=== PATIENT | male | born 1950 ===

== ENCOUNTER 2024-05-18 08:27 | Outpatient (CLI) | payer OTHER, BC ==
[~2024-05-18 08:27] MED LIST: HYDROCHLOROTH12.5 MG; LIPITOR20 MG; TAMS0.4C PO
== END 2024-05-18 08:29 | disposition home or self-care (01) ==
LOC: SONOGRAMA 08:27
PROVIDERS: ATTEND Pathology Anatomic Pathology
DX: D37.030 Neoplasm of uncertain behavior of the parotid salivary glands (principal)